=== PATIENT | female | born 1980 | race Caucasian/White ===

== ENCOUNTER 2018-07-17 19:00 | Inpatient (IN) | payer OTHER ==
[2018-07-17] MEDS ORDERED: Lactated Ringer's 1,000 ML IV ONE ×2 (19:50→20:14)
[2018-07-17] MEDS ORDERED: Lactated Ringer's 1,000 ML IV SCH (20:00)
[2018-07-17 20:10] VITALS: BMI 27.3
[2018-07-17] MEDS ORDERED: Sodium Citrate/Citric Acid 15 ml Sol PO ONE (20:14)
[2018-07-17] MEDS ORDERED: cefOXitin IV 2 gm in Dextrose 2 GM/50 ML BAG IVPB ONE (20:14)
--- NOTE | 2018-07-17 20:22 | OBHP ---
Datetime: 07/17/2018 19:56 IP Adm Impression: Term, intrauterine IP Admit Plan: Admit to unit; Observation/Evaluation Admit Comment, IP Provider: 38yo edc 9/3 by 8wk us and lmp preents w/ c/o sromand onset of ctxs @17:00. she denies decreased fm or vag bleeding. reports good fm. state pregnanc uncomplicated. pobhx: cd for nonreassuring status pmhx: denies nkda medic: pnv shx: denies etoh, illicit drugs or tobacco i:38.6wks prom h/o cd p: admit for rpeat cd dr deshpande notifed Pelvic Type - PN: Adequate Extremities - PN: Normal Lungs - PN: Normal Heart - PN: Normal Neurologic - PN: Normal HEENT - PN: Normal General - PN: Normal Presentation-Admit: Vertex Membranes, Provider: Ruptured Comments, ACOG Physical Exam: neg: gbs, hiv _ rprx2, hBsneg mumps igG,measles igG,vzigG,rI Pool Provider: Positive EGA AdmitDate IP: 38.4 IP Chief Complaint: Uterine contractions; Suspected ruptured membranes NICHD Variability Prov Fetus A: Moderate 6-25bpm FHR Category Provider Fetus A: Category I NICHD Decel Fetus A IP Provider: None Dilatation, Provider: 0 Effacement, Provider: 0 Station, Provider: -3 Genitourinary Exam: Normal
--- NOTE | 2018-07-17 20:26 | OBADHP ---
Datetime: 07/17/2018 19:56 Admit Comment, IP Provider: 38yo edc 9/3 by 8wk us and lmp preents w/ c/o sromand onset of ctxs @17:00. she denies decreased fm or vag bleeding. reports good fm. state pregnanc uncomplicated. pobhx: cd for nonreassuring status pmhx: denies nkda medic: pnv shx: denies etoh, illicit drugs or tobacco i:38.6wks prom h/o cd p: admit for rpeat cd dr deshpande notifed Pelvic Type - PN: Adequate Extremities - PN: Normal Lungs - PN: Normal Heart - PN: Normal Neurologic - PN: Normal HEENT - PN: Normal General - PN: Normal Presentation-Admit: Vertex Membranes, Provider: Emma Comments, ACOG Physical Exam: neg: gbs, hiv _ rprx2, hBsneg mumps igG,measles igG,vzigG,rI Pool Provider: Positive IP Chief Complaint: Uterine contractions; Suspected ruptured membranes NICHD Variability Prov Fetus A: Moderate 6-25bpm FHR Category Provider Fetus A: Category I NICHD Decel Fetus A IP Provider: None Dilatation, Provider: 0 Effacement, Provider: 0 Station, Provider: -3 Genitourinary Exam: Normal EGA AdmitDate IP: 38.4 IP Adm Impression: Term, intrauterine IP Admit Plan: Admit to unit; Observation/Evaluation
[2018-07-17] MEDS ORDERED: Oxytocin 30 UNIT 30 UNITS/500 ML BAG IV ONE (20:56)
[2018-07-17] MEDS ORDERED: Phenylephrine 10 mg/ml Inj ONE (21:52)
[2018-07-17] MEDS ORDERED: Morphine 1 mg/ml preservative-free Inj(Duramorph) ONE (21:52)
[2018-07-17 21:56] LABS: BASO # 0.1 K/uL (0.0-0.2); BASO % 0.8 % (0.0-2.0); EOS # 0.1 K/uL (0.0-0.7); EOS % 0.7 % (0.0-4.0); HEMOGLOBIN 13.1 g/dL (11.0-16.0); LYMPH # 1.2 K/uL (1.0-4.3); LYMPH % 11.6 % (20.0-40.0); MEAN CELL VOLUME 90.8 fL (81.0-99.0); MEAN CORPUSCULAR HEMOGLOBIN 30.5 pg (27.0-31.0); MEAN CORPUSCULAR HGB CONC 33.5 g/dL (33.0-37.0); MEAN PLATELET VOLUME 11.4 fL (7.2-11.7); MONO # 0.7 K/uL (0.0-0.8); MONO % 6.8 % (0.0-10.0); NEUT # 7.9 K/uL (1.8-7.0); NEUT % 80.1 % (50.0-75.0); NRBC % 0.1 % (0.0-2.0); RBC 4.3 Mil/uL (3.80-5.20); WHITE BLOOD COUNT 9.9 K/uL (4.8-10.8)
[2018-07-17 22:07] LABS: SQUAMOUS EPITHIAL 1 /hpf (0-5); URINE BACTERIA RARE (<OCC); URINE BILIRUBIN NEGATIVE (NEGATIVE); URINE BLOOD NEGATIVE (NEGATIVE); URINE CLARITY Clear (Clear); URINE COLOR Yellow (YELLOW); URINE GLUCOSE (UA) 1+ mg/dL (Normal); URINE LEUKOCYTE ESTERASE NEG Leu/uL (Negative); URINE PROTEIN NEGATIVE (NEGATIVE); URINE UROBILINOGEN NORMAL mg/dL (0.2-1.0)
[2018-07-18] MEDS ORDERED: Nalbuphine HCL 10 mg/ml Ampule IVP STA (01:30)
[2018-07-18] MEDS ORDERED: Sodium Citrate/Citric Acid 15 ml Sol ONE (07:14)
[2018-07-18] MEDS ORDERED: Oxytocin 20 units in LR 2,000 ML IV ONE (07:15)
[2018-07-18] MEDS ORDERED: cefOXitin IV 2 gm in Saline 2 GM/50 ML BAG IVPB ONE (07:17)
--- NOTE | 2018-07-18 09:54 | OBDS ---
DELIVERY PERSONNEL Delivery Doctor: Isra Rosales MD Scrub Nurse: Nicole Greenwood OBT Coach Cleaner: Cheryl Monae RN Anesthesiologist: conner MATERNAL INFORMATION Delivery Anesthesia: Spinal Estimated Blood Loss (ml): 800 Placenta Cultured: Yes Maternal Complications: None RN Comments: liveborn baby boy via repeat c/s Provider Comments: live male infnat cheapic presenation agpars 9,9 weight of 6lbs 4 ounces tight nuchal x 2 ebl 800ml LABOR SUMMARY EDC: 07/27/2018 00:00 No. Babies in Womb: 1 Attempted: No Labor Anesthesia: Intrathecal LABOR INFORMATION Reason for Induction: Not Applicable Onset of Labor: 07/17/2018 17:00 Oxytocin: N/A Group B Beta Strep: Negative Steroids Given: None Reason Steroids Not Administered: Not Applicable MEMBRANES Membranes Rupture Method: Artificial Rupture of Membranes: 07/17/2018 17:00 Length of Rupture (hrs): 15.43 Amniotic Fluid Color: Clear Amniotic Fluid Amount: Moderate Amniotic Fluid Odor: Normal STAGES OF LABOR Stage 3 hrs: -23 Stage 3 min: -59 Total Time in Labor hrs: -8 Total Time in Labor min: -33 CSECTION DELIVERY Primary Indication: Repeat Elective CSection Urgency: Elective CSection Incidence: Repeat Labor: Labor Elective: Elective CSection Incision: Lower Uterine Transverse BABY A INFORMATION Delivery Date/Time: 07/18/2018 08:26 Method of Delivery: Born in Route : No : N/A Forceps: N/A Vacuum Extraction: N/A Shoulder Dystocia : No SHOULDER DYSTOCIA BABY A Infant Delivery Date/Time: 07/18/2018 08:26 PRESENTATION/POSITION BABY A Presentation: Cephalic Cephalic Presentation: Vertex Vertex Position: Right Occipital Anterior Breech Presentation: N/A PLACENTA INFORMATION BABY A Placenta Delivery Time : 07/17/2018 08:27 Placenta Method of Delivery: Manual Removal Placenta Status: Delivered SCORES BABY A Heart Rate 1 min: >100 bpm Resp Effort 1 min: Good Cry Reflex Irritability 1 min: Cough or Sneeze or Pulls Away Muscle Tone 1 min: Active Motion Color 1 min: Body [place], Extremities Blue Resuscitation Effort 1 min: N/A SCORE 1 MIN: 9 Heart Rate 5 min: >100 bpm Resp Effort 5 min: Good Cry Reflex Irritability 5 min: Cough or Sneeze or Pulls Away Muscle Tone 5 min: Active Motion Color 5 min: Body [place], Extremities Blue Resuscitation Effort 5 min: N/A SCORE 5 MIN: 9 INFANT INFORMATION BABY A Gestational Age at Delivery: 38.5 Gestational Status: Term Infant Outcome : Liveborn Condition : Stable Sex: Male IDENTIFICATION/MEDS BABY A ID Band Number: [id number] ID Band Location: Left Leg; Left Arm Sensor Applied: Yes Sensor Number: [id number] Sensor Location : Cord Clamp Vitamin K Given : Left Thigh Erythromycin Given: Given Both Eyes WEIGHT/LENGTH BABY A Birthweight (gms): 2830 Infant Weight (lb): 6 Infant Weight (oz): 4 Length Inches: 19.50 Length cms: 49.5 CORD INFORMATION BABY A No. Cord Vessels: 3 Nuchal Cord : Around Neck x2, Tight Cord Blood Taken: Yes Suction: None
[2018-07-18] MEDS ORDERED: Oxycodone/Acetaminophen 5/325 mg Tab PO PRN ×2 (10:16)
--- NOTE | 2018-07-18 10:16 | PCM.SURG1 ---
Surgeon's Initial Post Op Note - Surgeon's Notes Surgeon: Halie Rosales mD Mexican Food Cook: Kevin Almaraz MD Type of Anesthesia: Spinal Pre-Operative Diagnosis: TErm intrauteirne , previuso ceearenseciotn seciton with rupture of membrneas Operative Findings: live male infnat cephalic presnetitaon, tight nuchal cord x 2 reduced, weigh tof 6lbs4 ounces ebl 800ml apgars 9,9 noraml appearing uteurs with noral right fallopian tuba and ovary, noraml left fallopian tube with left adherent ovary to psterio surgace endometrioma noted, good hemostasis. Dr Jaun Almaraz was surigcal assistnat and present for entire case and essential in gainign etry, treraction, epxoure, holidng bladder blade, helpign to clsoe all layers Post-Operative Diagnosis: same as above Operation Performed: Repeat low transverse cesearesn section Specimen/Specimens Removed: placenta Estimated Blood Loss: EBL {In ML}: 800 Blood Products Given: N/A Drains Used: No Drains Post-Op Condition: Good Date of Surgery/Procedure: 07/18/18 Time of Surgery/Procedure: 08:15
[2018-07-18] MEDS: Simethicone 80 mg Chewtab PO SCH ×3 (16:33→22:54)
[2018-07-19 08:47] LABS: HEMOGLOBIN 11.9 g/dL (11.0-16.0); MEAN CELL VOLUME 90.7 fL (81.0-99.0); MEAN CORPUSCULAR HEMOGLOBIN 30.7 pg (27.0-31.0); MEAN CORPUSCULAR HGB CONC 33.8 g/dL (33.0-37.0); MEAN PLATELET VOLUME 10.8 fL (7.2-11.7); RBC 3.89 Mil/uL (3.80-5.20); RED CELL DISTRIBUTION WIDTH 15.5 % (11.5-14.5); WHITE BLOOD COUNT 11.7 K/uL (4.8-10.8)
[2018-07-19 08:51] LABS: ALB/GLOB RATIO 1.3 (1.0-2.1); ALT/SGPT 39 U/L (9-52); AST/SGOT 38 U/L (14-36); BLOOD UREA NITROGEN 6 mg/dL (7-17); CALCIUM 8.7 mg/dl (8.6-10.4); GFR NON-AFRICAN AMERICAN > 60
[2018-07-19] MEDS: Simethicone 80 mg Chewtab PO SCH ×4 (09:11→21:34)
[2018-07-19] MEDS ORDERED: Prenatal Multivit/Folic Acid/Iron Tab PO SCH (10:00)
[2018-07-19] MEDS ORDERED: Bisacodyl 5mg EC Tab PO ONE (10:16)
--- NOTE | 2018-07-19 11:20 | OBPPN ---
Datetime: 07/19/2018 11:17 PP Pain Prov: Within normal limits PP Nausea Prov: Denies PP Flatus Prov: Yes PP BM Prov: No PP Breasts Prov: Normal PP Heart Prov: Normal PP Lungs Prov: Normal PP Abdomen/Uterus Prov: Normal PP Lochia Prov: Normal PP Vulva/Perineum Prov: Normal PP CVA Tenderness Prov: Normal PP Extremities Prov: Normal PP C/S Incision Prov: Normal PP Progress Prov: Normal PP Comments Phys Exam Prov: incision c/d/i healing well abdom: sofnt, nt, nd, +BS fundus :firm, at lelv ao u fmbisc miniaml lohcia, non foul smelling ext, no calf tnendere, geaitve blaine's sign PP Impression Prov: Normal progression PP Plan Prov: Continue present management PP Progress Note Prov: pt seen and examiend o complints VSS PE see above A/P s/p RLTCS POD #1 doign well am labs pain manmgent dc hannah advance diet as tolearted incentive spirometer abodminal binder Vital Signs Provider PP: Reviewed; Within Normal Limits
[2018-07-19] MEDS: Multiple Vitamins Tab PO SCH (17:26)
--- NOTE | 2018-07-20 00:27 | OBPPN ---
Datetime: 07/20/2018 00:22 PP Pain Prov: Within normal limits PP Nausea Prov: Denies PP Flatus Prov: No PP BM Prov: No PP Breasts Prov: Normal PP Heart Prov: Normal PP Lungs Prov: Normal PP Abdomen/Uterus Prov: Normal PP Lochia Prov: Normal PP Vulva/Perineum Prov: Normal PP CVA Tenderness Prov: Normal PP Extremities Prov: Normal PP C/S Incision Prov: Normal PP Progress Prov: Normal PP Impression Prov: Normal progression PP Plan Prov: Continue present management PP Progress Note Prov: pt seen and examiend no complant, priyank garcia diwh meds. ambaitn,g ovidng, n ot passingf flauts, otleating reular diet, bresat feedin denies any sadnes or deoression no vaignal b leeidng VSS PE GEN NAD AA Ox 3 BRWAT: NT, NOn engoaurge dREP: Ctab/l CVSR: RRR< +S1/S2 ABD: softr, nt, nd, +BS, no guaridngn ou reobudn tendnere no rigdyt FUNDSUFK fir, below levle of jbmiucs INCSIOCN C/D??Ihealing well VE: mniolma locha non foul semling EXT: no calf tendnere negativ ehoman sign A/P s/p RLTCS POD #2 doing well pain manmgent regular diet bowel regimen possibel dc if passign flatus Vital Signs Provider PP: Reviewed; Within Normal Limits
--- NOTE | 2018-07-20 00:27 | OBDCSUM ---
Datetime: 07/20/2018 00:24 Discharged to, Provider: Home Follow up at, Provider: Dr Rosales Disch Instr Activity: Normal activity Disch Instr Diet: Regular Discharge Instructions, Provider: Routine instructions given Discharge Diagnosis, Provider: Term Delivered Discharge Time: 07/20/2018 15:00 Follow up in weeks, Provider: 1 week Disch Referrals: None Contraception discussed, Prov: Yes Disch Activity Restrictions: No sexual activity; Nothing in vagina - Braden, tampons, douche Discharge Comment, Provider: precautin given Contraception after Delivery: Not Planning to Use
--- NOTE | 2018-07-20 06:32 | OP ---
Copied To: Halie Rosales MD Attending MD: Halie Rosales MD PROCEDURE DATE: 07/18/2018 SURGEON: Halie Rosales MD FLOAT TENDER: Suman Almaraz MD TYPE OF ANESTHESIA: Spinal. PREOPERATIVE DIAGNOSES: Term intrauterine , previous section, rupture of membranes pallavi in early labor. POSTOPERATIVE DIAGNOSES: Term intrauterine , previous section, rupture of membranes pallavi in early labor. OPERATIVE FINDINGS: Live male infant, cephalic presentation, tight nuchal cord x2 reduced, weight is 6 pounds, 4 ounces. Apgars 9 and 9. Normal appearing uterus, tubes and ovaries bilaterally with normal right fallopian tube and normal right ovary, normal left fallopian tube with left ovary adherent to posterior surface of the uterus. Endometrium noted. Good hemostasis. OPERATION PERFORMED: Repeat low-transverse section. Dr. Suman Almaraz, surgical product sales consultant, was present for the entire case, essentially in gaining entry, retraction, exposure, holding the bladder blade, helping to deliver the infant, closing all layers. SPECIMEN REMOVED: Placenta. ESTIMATED BLOOD LOSS: 800 mL. BLOOD PRODUCTS: None. COMPLICATIONS: None. DESCRIPTION OF PROCEDURE: Risks, benefits, alternatives, and indications of repeat section were discussed with the patient. The consent was obtained. The patient was transferred to the operating room where she was given spinal anesthesia. Once it was found to be adequate, the patient was placed on the operating table in the dorsal supine position. The patient was prepped and draped in the usual sterile fashion. A time-out confirmed correct patient and correct procedure. The patient was given preoperative prophylactic antibiotics. Pfannenstiel skin incision was made with a scalpel, carried down to the underlying fascia with the Bovie. The fascia was incised in the midline. The incision was extended laterally with the Altman scissors. Inferior aspect of the fascial incision was grasped with Allis and Jaquan clamps, and the underlying rectus muscle was dissected off bluntly. Attention was then turned to the superior aspect of the incision which in a similar fashion, was grasped with Allis and Jaquan clamps and the underlying rectus muscles were dissected off bluntly. The rectus muscles were then bluntly in the midline. The peritoneum was identified in clear space. The incision was extended laterally and superiorly until there was good visualization of the bladder. The lower end of the [place] was then reinserted. The lower uterine segment was incised in a transverse fashion superior to the bladder flap. Uterine incision was extended laterally and bluntly. The surgeon's hand entered the uterine cavity, and the infant's head was delivered atraumatically. There was nuchal cord x2 that was reduced, followed by delivery of the shoulders, followed by delivery of body. Both oral and nasal passages of the baby were bulb suctioned. The umbilical cord was clamped and cut. Baby was handed off to the awaiting dean of students. Cord blood and cord gases were collected and sent x2. The placenta was then delivered manually. The uterus was exteriorized of all clots and debris. The uterine incision was repaired with 0 Vicryl in a running continuous locked fashion. A second layer of 0 Vicryl was used to close the uterus in a running imbricating manner. There was good hemostasis noted at all aspects. The uterus then returned to the abdomen. Pericolic gutters were cleared of all clots and debris. There was good hemostasis in the uterine incision site. Following this, the peritoneum was reapproximated with 2-0 chromic in running continuous fashion. The rectus was reapproximated and closed with 2-0 chromic in interrupted manner. Fascial was reapproximated with 0 Vicryl in a running continuous fashion. The subcutaneous space was closed with 2-0 plain in interrupted manner, and the skin was reapproximated with 4-0 Monocryl. At the end of the procedure, all needle, sponge and instrument counts were noted to be correct x2. The patient tolerated the procedure well and was transferred to the recovery room in stable condition. Halie Rosales MD
[2018-07-20] MEDS ORDERED: Magnesium Hydroxide Susp 30 ml UD PO ONE (09:00)
[2018-07-20] MEDS: Simethicone 80 mg Chewtab PO SCH ×4 (09:55→21:12)
[2018-07-20] MEDS: Multiple Vitamins Tab PO SCH (09:56)
[2018-07-21 00:12] VITALS: PULSE 85; RESP 20
[2018-07-21 07:47] VITALS: BP 124/79; TEMP 97.1; O2SAT 100
[2018-07-21] MEDS: Multiple Vitamins Tab PO SCH (10:44)
== END 2018-07-21 15:08 | disposition home or self-care (01) | DRG 766 ==
LOC: C.EROB 19:00 → C.4D 19:50 → C.4M 07-18 11:46
PROVIDERS: ADMIT Obstetrics & Gynecology; ATTEND Obstetrics & Gynecology
PROC: 10D00Z1 Extraction of Products of Conception, Low, Open Approach (ICD-10-PCS; principal; 2018-07-18)
DX: O34.211 Maternal care for low transverse scar from previous cesarean delivery (principal); O75.82 Onset (spontaneous) of labor after 37 completed weeks of gestation but before 39 completed weeks gestation, with delivery by (planned) cesarean section; O69.1XX0 Labor and delivery complicated by cord around neck, with compression, not applicable or unspecified; Z3A.38 38 weeks gestation of pregnancy; Z37.0 Single live birth